=== PATIENT | female | born 1990 | race Caucasian/White ===

== ENCOUNTER 2019-03-09 05:37 | Emergency (ER) | payer OTHER ==
[2019-03-09 05:54] VITALS: BP 137/77; PULSE 104
--- NOTE | 2019-03-09 06:18 | EDM.PDOC ---
<Sun Briones - Last Filed: 03/09/19 06:54> ED HPI GENERAL MEDICAL PROBLEM - General Chief Complaint: General Stated Complaint: 9 WKS ,BLEEDING Time Seen by Provider: 03/09/19 06:15 Source of Information: Reports: Patient History Limitations: Reports: No Limitations - History of Present Illness INITIAL COMMENTS - FREE TEXT/NARRATIVE: pt arrived with a history of spotting with this preg at 4 weeks. This bleeding at that time became quite heavy. She is now 9 weeks and she is bleeding again with slight cramping. Onset: Today Duration: Hour(s): Associated Symptoms: Reports: Other ( vag spotting at 9 weks . ) Lower Abdomen Pain Score (Numeric/FACES): 1 - Related Data Allergies Allergy/AdvReac Type Severity Reaction Status Date / Time lisinopril Allergy Rash Verified 08/15/15 08:51 Home Meds: Home Meds Insulin Aspart [NovoLOG] 100 unit SUBCNJ ASDIRECTED 07/18/15 [History] Albuterol [Proventil Neb Soln] 2.5 mg NEB Q4H PRN 06/24/18 [History] Albuterol [Ventolin HFA] 2 puff INH Q2H PRN 06/24/18 [History] Aspirin [Halfprin] 81 mg PO DAILY 06/24/18 [History] Labetalol HCl [Labetalol] 100 mg PO BID 06/24/18 [History] Omeprazole 20 mg PO DAILY 06/24/18 [History] Pnv No.95/Ferrous Fum/Folic AC [ Caplet] 1 each PO DAILY 06/24/18 [ History] Past Medical History HEENT History: Reports: Impaired Vision, Otitis Media, Other (See Below) Other HEENT History: TMJ Cardiovascular History: Reports: Arrhythmia Respiratory History: Reports: Asthma Gastrointestinal History: Reports: None Genitourinary History: Reports: None SURVEILLANCE DIRECTOR History: Reports: Endometriosis, , Spontaneous Musculoskeletal History: Reports: Back Pain, Chronic Neurological History: Reports: Concussion Psychiatric History: Reports: None Endocrine/Metabolic History: Reports: Diabetes, Type I, Other (See Below) Other Endocrine/Metabolic History: On insulin pump Hematologic History: Reports: None Immunologic History: Reports: None Oncologic (Cancer) History: Reports: None Dermatologic History: Reports: None - Infectious Disease History Infectious Disease History: Reports: Chicken Pox - Past Surgical History Head Surgeries/Procedures: Reports: None HEENT Surgical History: Reports: Adenoidectomy, Myringotomy w Tube(s) GI Surgical History: Reports: Appendectomy Female Surgical History: Reports: Endometrial Ablation, Other (See Below) Dermatological Surgical History: Reports: None Social & Family History - Family History Family Medical History: Noncontributory HEENT: Reports: Impaired Vision Cardiac: Reports: Hypertension Respiratory: Reports: None GI: Reports: Diverticulosis : Reports: None OBGYN: Reports: None Musculoskeletal: Reports: Arthritis Neurological: Reports: CVA Psychiatric: Reports: None Endocrine/Metabolic: Reports: Diabetes, type II Hematologic: Reports: None Immunologic: Reports: None Dermatologic: Reports: None Oncologic: Reports: Skin - Tobacco Use Smoking Status *Q: Never Smoker - Caffeine Use Caffeine Use: Reports: Tea Caffeine Use Comment: weekly - Recreational Drug Use Recreational Drug Use: No ED ROS GENERAL - Review of Systems Review Of Systems: See Below Constitutional: Reports: No Symptoms HEENT: Reports: No Symptoms Respiratory: Reports: No Symptoms Cardiovascular: Reports: No Symptoms Endocrine: Reports: Other (pt is a type 1 diabetic. She has a insulin pump. ) GI/Abdominal: Reports: Other ( slight cramping. ) : Reports: No Symptoms Musculoskeletal: Reports: No Symptoms Skin: Reports: No Symptoms ED EXAM, GENERAL - Physical Exam Exam: See Below Free Text/Narrative:: pt arrived with vag spotting and slight cramping. She is 9 weeks along. Exam Limited By: No Limitations General Appearance: Alert, Mild Distress Ears: Normal TMs Nose: Normal Inspection Throat/Mouth: Normal Inspection Head: Atraumatic Neck: Normal Inspection Respiratory/Chest: No Respiratory Distress Cardiovascular: Regular Rate, Rhythm GI/Abdominal: Other ( no tenderness present. ) (Female) Exam: Deferred Rectal (Female) Exam: Deferred Back Exam: Normal Inspection Extremities: Normal Inspection Neurological: Alert, Oriented, Normal Cognition Psychiatric: Normal Affect Course - Vital Signs Last Recorded V/S: Last Vital Signs Temp 97.2 F 03/09/19 05:51 Pulse 104 H 03/09/19 05:51 Resp 14 03/09/19 05:51 BP 137/77 03/09/19 05:51 Pulse Ox 100 03/09/19 05:51 - Orders/Labs/Meds Orders: Active Orders 24 hr Category Date Time Status OB Ltd 1 or More Fetus [US] Stat Exams 03/09/19 06:21 Ordered UA W/MICROSCOPIC [URIN] Urgent Lab 03/09/19 06:14 Ordered Labs: Laboratory Tests 03/09/19 03/09/19 03/09/19 Range/Units 06:24 06:24 06:24 WBC 7.5 (4.5-11.0) K/uL RBC 4.47 (3.30-5.50) M/uL Hgb 12.1 (12.0-15.0) g/dL Hct 36.7 (36.0-48.0) % MCV 82 (80-98) fL MCH 27 (27-31) pg MCHC 33 (32-36) % Plt Count 286 (150-400) K/uL Neut % (Auto) 71 H (36-66) % Lymph % (Auto) 20 L (24-44) % [place] % (Auto) 7 H (2-6) % Eos % (Auto) 2 (2-4) % Baso % (Auto) 0 (0-1) % Sodium 136 L (140-148) mmol/L Potassium 4.2 (3.6-5.2) mmol/L Chloride 102 (100-108) mmol/L Carbon Dioxide 24 (21-32) mmol/L Anion Gap 14.2 H (5.0-14.0) mmol/L BUN 15 (7-18) mg/dL Creatinine 0.5 L (0.6-1.0) mg/dL Est Cr Clr Drug Dosing 137.33 mL/min Estimated GFR (MDRD) > 60 (>60) Glucose 183 H (74-106) mg/dL Calcium 9.1 (8.5-10.1) mg/dL Total Bilirubin 0.3 (0.2-1.0) mg/dL AST 14 L D (15-37) U/L ALT 19 D (12-78) U/L Alkaline Phosphatase 100 (46-116) U/L Total Protein 7.3 (6.4-8.2) g/dL Albumin 3.4 (3.4-5.0) g/dL Globulin 3.9 H (2.3-3.5) g/dL Albumin/Globulin Ratio 0.9 L (1.2-2.2) HCG, Quant 52164 H (0-6) mIU/mL Departure - Departure Disposition: Home, Self-Care 01 Clinical Impression: Vaginal bleeding during - Discharge Information Referrals: Hortensia English PA [Primary Care Provider] - Forms: ED Department Discharge Additional Instructions: Please call your SURVEILLANCE DIRECTOR for follow-up this week, call return to the emergency department worsening of symptoms <OfficerShahid - Last Filed: 03/09/19 07:53> Departure - Departure Time of Disposition: 07:52 Condition: Fair - Assessment/Plan Plan: Assessment Acuity = acute Site and laterality = vaginal bleeding complicating the patient currently at 9 weeks intrauterine 3. Para 1 Etiology = unknown etiology Manifestations = none Location of injury = Home Lab values = CBC is CMP unremarkable beta-hCG is at 38,000 760 ultrasound REVEALS GOOD MOVEMENT WITH GOOD CARDIAC ACTIVITY AT 160 PER REPORT FROM PLASTERER APPRENTICE REVEALED NO ETIOLOGY FOR BLEEDING OFFICIAL READ FROM RADIOLOGY IS PENDING Plan Did review results with her she is going to contact her SURVEILLANCE DIRECTOR for follow-up this week This note was dictated using [employer] voice recognition software please call with any questions on syntax or grammar.
--- NOTE | 2019-03-09 09:16 | CRLUS ---
INDICATION: Vaginal bleeding. COMPARISON: None. TECHNIQUE: Transabdominal pelvic ultrasound; OB . Findings: Single viable intrauterine gestation of 9 weeks duration. cardiac activity is measured at 167 beats per minute . The uterus is measuring 12.4 x 7 x 8.1 cm. The right ovary is measuring 3.9 x 2.8 x 2.9 cm with a 1.9 cm cyst in it. The left ovary is not adequately delineated. Normal blood flow to the right ovary. No free fluid in the cul-de-sac. IMPRESSION: 1. Single viable intrauterine gestation of 9 weeks duration. 2. No abnormalities are identified. Dictated by Tru Zaragoza MD @ Mar 09 2019 9:04AM Signed by Dr. Tru Zaragoza @ Mar 09 2019 9:15AM
== END 2019-03-09 08:01 | disposition home or self-care (01) ==
LOC: JP.ED 05:37
DX: O20.9 Hemorrhage in early pregnancy, unspecified (principal); O99.511 Diseases of the respiratory system complicating pregnancy, first trimester; J45.909 Unspecified asthma, uncomplicated; O24.011 Pre-existing type 1 diabetes mellitus, in pregnancy, first trimester; E10.9 Type 1 diabetes mellitus without complications; Z88.8 Allergy status to other drugs, medicaments and biological substances; Z79.4 Long term (current) use of insulin; Z3A.09 9 weeks gestation of pregnancy
CPT/HCPCS: 36415; 76815; 80053; 84702; 85025; 99284-25